=== PATIENT | male | born 1955 | race Caucasian/White ===

== ENCOUNTER 2017-02-28 15:07 | Emergency (ER) | payer MEDICARE ==
[2017-02-28] MEDS ORDERED: EPINEPHrine HCL AMP 1 MG/ML AMP SUBCU ONE (15:10)
[2017-02-28] MEDS ORDERED: methylPREDNISolone SODIUM SUC 125 MG/2 ML VIAL IV ONE (15:10)
[2017-02-28] MEDS ORDERED: EPINEPHrine HCL AMP 1 MG/ML AMP ONE (15:10)
[2017-02-28] MEDS ORDERED: diphenhydrAMINE HCL 50 MG/ML VIAL IV ONE (15:11)
[2017-02-28] MEDS ORDERED: IPRATROPIUM/ALBUTEROL 3 ML VIAL NEB ONE ×2 (15:11→16:13)
[2017-02-28 15:20] VITALS: O2SAT 93
[2017-02-28] MEDS ORDERED: predniSONE 20 MG TAB ONE (15:58)
[2017-02-28] MEDS ORDERED: CETIRIZINE HCL 10 MG TAB PO ONE (16:00)
[2017-02-28] MEDS ORDERED: MONTELUKAST 10 MG TAB ONE (16:00)
== END 2017-02-28 17:40 | disposition home or self-care (01) ==
LOC: ER 15:07
DX: T78.2XXA Anaphylactic shock, unspecified, initial encounter (principal); R06.03 Acute respiratory distress; J44.9 Chronic obstructive pulmonary disease, unspecified; F17.200 Nicotine dependence, unspecified, uncomplicated
CPT/HCPCS: 94640; J1200; J2930; J7512; J7620